=== PATIENT | female | born 1980 | race Caucasian/White ===

== ENCOUNTER 2019-10-29 17:37 | Emergency (ER) | payer BC, SELFPAY ==
[2019-10-29 17:46] VITALS: BP 144/82; PULSE 71; RESP 16; TEMP 36.3; O2SAT 100
--- NOTE | 2019-10-29 18:14 | ED.SKABFB ---
HPI - Skin/Abscess/Foreign Bdy General Chief complaint: Skin/Abscess/Foreign Body Stated complaint: SPIDER BITE Source: patient and RN notes reviewed Mode of arrival: ambulatory Limitations: no limitations History of Present Illness HPI narrative: The patient, who is obese and a hospital employee, presents with skin eruption. Patient states she has a shorter couple day history of right ankle eruption that is pink, blistering. No fever, streaking, there was some yellowish discharge earlier today followed by scabbing. 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 Symptoms are mild, worse with scratching Related Data Allergies Allergy/AdvReac Type Severity Reaction Status Date / Time lisinopril Allergy Mild Other Unverified 10/29/19 17:44 Penicillins Allergy Unknown ITCHING Verified 04/30/16 10:25 Sulfa (Sulfonamide Allergy Unknown Anaphylaxis Verified 10/29/19 17:44 Antibiotics) RANCH DRESSING Allergy Mild CAN EAT Uncoded 02/01/09 09:27 BUT ITCHING IF ON SKIN Review of Systems Review of Systems: Narrative: The patient has been informed that they may have pre-hypertension or Hypertension based on a BP reading in the department. I recommend that the patient call the primary care provider listed on their discharge instructions or a physician of their choice this week to arrange follow up for further evaluation of possible pre-hypertension or Hypertension General/Constitutional: No weight loss,fever Eyes: N0: Redness,discharge Ears/Nose/Throat: No: Epistaxis,ear discharge Respiratory: Denies: Hemoptysis Gastrointestinal: No Vomiting, Bleeding-rectal Skin: No Lumps, eruption Neurologic: No Focal Weakness,Sz Hematologic: Denies: Petechiae/Purpura Psychiatric: No: Suicida ideationl All Other Systems: Reviewed and Negative Exam Narrative: Exam Narrative: General Appearance: Obese/well-nourished, Normocephalic, Conjunctiva clear Ear: External ear normal Nose: Normal nose, Nare clear Mouth/Throat: Normal appearing Neck Exam: Supple Respiratory: Airway patent, No respiratory distress Musculoskeletal: Moves all extremities, Non tender Skin: Warm, Dry ; small, isolated macular papular skin eruption of right ankle Neurological: A&O x3,nl affect Course Vital Signs Vital signs: Vital Signs Temperature 97.3 F L 10/29/19 17:46 Pulse Rate 71 10/29/19 17:46 Respiratory Rate 16 10/29/19 17:46 Blood Pressure 144/82 H 10/29/19 17:46 Pulse Oximetry 100 10/29/19 17:46 Temperature 97.3 F L 10/29/19 17:46 Pulse Rate 71 10/29/19 17:46 Respiratory Rate 16 10/29/19 17:46 Blood Pressure 144/82 H 10/29/19 17:46 Pulse Oximetry 100 10/29/19 17:46 Discharge Plan Discharge Clinical Impression: Folliculitis Patient Disposition: Home, Self-Care Condition: Stable Instructions: Antibiotic Form, Folliculitis (ED) Prescriptions: New clindamycin HCl 300 mg capsule 300 mg PO Q6H Qty: 12 RF: 0 mupirocin 2 % ointment 1 applic TOPICAL TID Qty: 30 RF: 1 Interventions: Discharge Disposition Last Done: 10/29/19 18:12 Follow-up/Referrals: PHYSICIAN,PRIME MINISTER [Primary Care Provider] - Discharge Date/Time: 10/29/19 18:13
== END 2019-10-29 18:13 | disposition home or self-care (01) ==
PROVIDERS: Emergency Provider Emergency Medicine
DX: L73.9 Follicular disorder, unspecified (principal)
CPT/HCPCS: 99213; G0463